=== PATIENT | female | born 2000 | race Hispanic/Latino ===

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

== ENCOUNTER → 2019-02-24 | Outpatient (CLI) | payer OTHER ==
--- NOTE | 2019-02-25 03:41 | REP ---
Clinical: Anatomical evaluation. Comparison: None . Findings: Examination demonstrates a single live intrauterine in variable presentation. motion is identified by technologist. Placenta is noted anterior and grade grade zero without evidence for placenta previa or abruption. Amniotic fluid volume is normal. Cervix measures 3.5 cm in length and appears closed. No evidence for nuchal cord. Gestational age by LMP 19 weeks 3 day with MICHELLE 07/18/2019 . Gestational age by current measurements 19 weeks 1 day with MICHELLE 07/20/2019 . FHR equals 146 beats per minute. BPD 4.3 cm 19 weeks 0 days HC 16.3 cm 19 weeks 0-day AC 15.0 cm 20 weeks 2 days FL 2.7 cm 18 weeks 2-day HL 2.8 cm 19 weeks 0 days HC/AC ratio 1.08 Estimated weight 286 grams ( 44th percentile). Anatomical assessment demonstrates normal structures including cranium, cavum, cerebellum/posterior fossa, facial features, lungs, four-chamber heart/ventricular outflow tracts, diaphragm, stomach, cord insertion/three-vessel cord, kidneys/bladder, spine, and extremities. Multiple small right choroid plexus cysts noted. Impression: Single live intrauterine in variable presentation demonstrating appropriate interval growth. 2. Choroid plexus cysts identified. 3. Remainder of the anatomical assessment is complete and normal. Electronically Signed by Joey Vu MD 02/25/2019 03:33 A
== END ==
LOC: M RAD 17:31
PROVIDERS: ATTEND Obstetrics & Gynecology
DX: Z34.82 Encounter for supervision of other normal pregnancy, second trimester (principal); Z3A.19 19 weeks gestation of pregnancy

== ENCOUNTER → 2019-04-25 | Outpatient (CLI) | payer OTHER ==
[2019-04-25 11:21] LABS: HEMATOCRIT 36.1 % (36.0-47.0); MEAN CORPUSCULAR HEMOGLOBIN 28.8 pg (27.0-33.0); MEAN CORPUSCULAR HGB CONC 33.2 g/dl (32.0-36.5); MEAN CORPUSCULAR VOLUME 86.6 fl (80.0-96.0); PLATELET COUNT, AUTOMATED 253 10^3/uL (150-450); RED BLOOD COUNT 4.17 10^6/uL (4.00-5.40); WHITE BLOOD COUNT 9.9 10^3/uL (4.0-10.0)
== END ==
LOC: M LAB 09:15
PROVIDERS: ATTEND Obstetrics & Gynecology
DX: Z36.89 Encounter for other specified antenatal screening (principal); O34.211 Maternal care for low transverse scar from previous cesarean delivery; Z3A.00 Weeks of gestation of pregnancy not specified

== ENCOUNTER → 2019-06-18 | Outpatient (REF) | payer OTHER ==
[~2019-06-18] MED LIST: COLA100C5 PO; GNP650TA8 PO; IBUP80TA PO; PERCOCET PO; PRENTAB55 PO
== END ==
LOC: M LAB REF 17:27
PROVIDERS: ATTEND Advanced Practice Midwife
DX: Z34.83 Encounter for supervision of other normal pregnancy, third trimester (principal)

== ENCOUNTER → 2019-06-20 | Outpatient (CLI) | payer OTHER ==
[~2019-06-20] MED LIST changes: -COLA100C5 PO; -IBUP80TA PO; -PERCOCET PO
== END ==
LOC: M WUC 09:27
PROVIDERS: ATTEND Advanced Practice Midwife
DX: Z34.83 Encounter for supervision of other normal pregnancy, third trimester (principal); Z36.89 Encounter for other specified antenatal screening

== ENCOUNTER 2019-07-12 05:13 | Inpatient (IN) | payer OTHER ==
[~2019-07-12] VITALS: Ht 154.9 cm; Wt 61.8 kg
[2019-07-12 05:32] VITALS: BP 130/79
[2019-07-12] MEDS ORDERED: LR 1,000 ML IV SCH (05:54)
[2019-07-12] MEDS ORDERED: LACTATED RINGER'S 1000 ML IV STA (05:54)
[2019-07-12] MEDS ORDERED: ceFAZolin SOD 2 GM in IV 1 EA IV ONE (06:00)
[2019-07-12] MEDS ORDERED: BICITRA 30ML SOLN UDC PO ONE (06:00)
[2019-07-12] MEDS ORDERED: AZITHROMYCIN INJ 500 MG, VIAL MATE ADAPTER 1 EACH in D5W 250 ML IV ONE (06:00)
--- NOTE | 2019-07-12 06:07 | HPEPDOC ---
Obstetrical History & Physical General Date of Admission Jul 12, 2019 at 05:53 History of Present Illness Chief Complaint: Contractions, term Information Provided By: Patient Age: 18 : 2 Term: 1 Pre-term: 0 Abortions: 0 Livin Care Care: Good Care Dating Final EDC by: LMP EGA at Admission: 39 (+1) Antepartum Course Height (inches): 61 Pre- weight (lbs.): 125 Admission Weight (lbs.): 132 Past Medical History Past Obstetrical History : Past Obstetrical History: Primgravida (2016) Type of Delivery: Ceserean section ( heart indications) Sex of Infant: Female (6#3) Complications: Yes (nonreassuring status) [employer] History: No pertinent history Past Medical History Surgical History: section Family History Significant Family History: Diabetes, Hypertension Social History Marital Status: Single Family situation: Spouse/partner home Psychosocial History: No pertinent psych hx * Smoker: non-smoker Alcohol: Denies Drugs: denies Abuse Violence Screening Have you been hit/kicked/slapp: No Imunizations Tdap status: current Influenza Status: declined Medications Scheduled [id number]/Iron Fum/Folic/Docusate ( 19 Tablet) 1 Each Tablet, 1 TAB PO DAILY Scheduled PRN Acetaminophen (8 Hour) 650 Mg Tablet.er, 650 MG PO PRN PRN for HEADACHE Physical Examination Physical Examination GENERAL: Alert and oriented times three. Uncomfortable. BREAST: . ABDOMEN: Gravid and non-tender to touch. FETUS: Is vertex (VTX) by sterile vaginal examination (SVE), fetus is vertex (VTX) by Tima. SPEC exam, moderate creamy white discharge, pH 4.5 HEART RATE: Regular rate and rhythm. LUNGS: Clear to auscultation (CTA). EXTREMITIES: No edema. No clonus. Deep tendon reflexes (DTRs) + 2. Pertinent Laboratoy Data Blood Type: O+ RBC Antibody Screen: Negative HIV: Negative Hepatitis B: Negative Hepatitis C: Negative Rapid Plasma Reagin: Nonreactive Rubella: Immune Chlamydia/Gonorrhea: Negative Group B Streptococcus: Negative Glucose Tolerance Test: 127 Anatomy Ultrasound Ultrasound Date: February 24, 2019 Placenta Location: Anterior Normal Anatomy: Yes (choroid plexus cysts) Placenta Previa: No Estimated Weight (grams): 286 Other Ultrasounds 12/16/18 dating MICHELLE 07/18/19 Steroid Therapy Steroid Therapy: No Vaginal Examination Dilation: 7 cm Effacement: 90% Station: 0 Cervical Consistency: Soft Cervical Position: Middle Presentation: Cephalic presentation Assessment Heart Rate (FHR): 130 Variability: Moderate Accelerations: Positive Decelerations: None Tocometer Contractions: Yes Frequency: regular, every 1-3 min. Strength: palpated as strong Assessment/Plan Assessment Karen is a 18-year-old (G)2 para (P)1-0-0-1 at 39+1 weeks by 9-week ultrasound. Presents to Labor and Delivery (L&D) with complaints of UC since 033 and possible ROM. Neg pool, neg nitrazine, found to be 7 cm dilated. Pt is palestinian speaking, mother in law is currently present for translation. History of previous with plans for repeat 07/14/19. Plan Admit and orient. [employer] and consent. Diet: NPO. Group B Streptococcus (GBS) negative. Labs and intravenous (IV) per unit protocol. Lactated Ringers (LR): Bolus 1000 mL, then at 125 mL/hr. Dr Medina, anesthesia notified C-S as requested. Cookie Cuadra CNM Jul 12, 2019 06:07
[2019-07-12] MEDS ORDERED: OXYTOCIN INJ 10 UNITS/ML VIAL (J2590) As Ordered ONE ×2 (06:17→07:50)
[2019-07-12] MEDS ORDERED: ONDANSETRON 4MG/2ML VIAL (J2405) As Ordered ONE (06:17)
[2019-07-12] MEDS ORDERED: MORPHINE PRES-FREE INJ 10 MG/10 ML VIAL (J2274) As Ordered ONE (06:17)
[2019-07-12] MEDS ORDERED: KETOROLAC 60 MG/2 ML VIAL (J1885) As Ordered ONE (06:17)
[2019-07-12 06:19] LABS: HEMATOCRIT 35.9 % (36.0-47.0); HEMOGLOBIN 11.7 g/dl (12.0-15.5); MEAN CORPUSCULAR HEMOGLOBIN 26.3 pg (27.0-33.0); MEAN CORPUSCULAR HGB CONC 32.6 g/dl (32.0-36.5); MEAN CORPUSCULAR VOLUME 80.7 fl (80.0-96.0); PLATELET COUNT, AUTOMATED 195 10^3/uL (150-450); RED BLOOD COUNT 4.45 10^6/uL (4.00-5.40); WHITE BLOOD COUNT 10.4 10^3/uL (4.0-10.0)
[2019-07-12] MEDS ORDERED: METOCLOPRAMIDE INJ 10MG/2ML VIAL (J2765) IV PRN (06:41)
[2019-07-12] MEDS ORDERED: NALBUPHINE HCL 10 MG/ML AMP (J2300) IV PRN ×2 (06:41→08:45)
[2019-07-12] MEDS ORDERED: NALOXONE INJ 0.4 MG/1 ML VIAL (J2310) IV PRN ×2 (06:41)
[2019-07-12] MEDS ORDERED: diphenhydrAMINE INJ 50MG/ML VIAL (J1200) IV PRN (06:41)
[2019-07-12] MEDS ORDERED: ONDANSETRON 4MG/2ML VIAL (J2405) IV PRN ×3 (06:41→08:45)
[2019-07-12] MEDS ORDERED: ePHEDrine SULFATE 25 MG/5 ML(5MG/ML) SYRINGE As Ordered ONE (06:48)
[2019-07-12] MEDS ORDERED: PHENYLephrine HCL 500 MCG/5 ML (100MCG/ML) SYRINGE (J2370) As Ordered ONE (06:57)
[2019-07-12] MEDS ORDERED: METOCLOPRAMIDE INJ 10MG/2ML VIAL (J2765) As Ordered ONE (07:11)
[2019-07-12] MEDS ORDERED: dexameTHASONE 4 MG/ML 1ML VIAL (J1100) As Ordered ONE (07:12)
[2019-07-12] MEDS: OXYTOCIN DRIP 30 UNITS in IV 1 EA IV SCH ×2 (08:28→08:40)
[2019-07-12] MEDS ORDERED: ACETAMINOPHEN 500 MG TAB PO PRN (08:30)
[2019-07-12] MEDS ORDERED: RHOGAM 300 MCG (1500 IU) INJ (J2790) IM SCH (08:30)
[2019-07-12] MEDS ORDERED: PROMETHAZINE 25 MG TAB PO PRN (08:30)
[2019-07-12] MEDS ORDERED: MEASLES,MUMPS,RUBELLA VACCINE INJ (MMR-II) (90707) SC SCH (08:30)
[2019-07-12] MEDS ORDERED: PERCOCET 5MG/325MG TAB PO PRN ×3 (08:30→08:45)
[2019-07-12] MEDS ORDERED: fentaNYL 100 MCG/2 ML INJECTION (J3010) IV PRN (08:45)
[2019-07-12] MEDS ORDERED: MEPERIDINE INJ 25 MG/ML VIAL (J2175) IV PRN (08:45)
[2019-07-12] MEDS ORDERED: HYDROMORPHONE HCL 0.5 MG/ 0.5 ML SYRINGE (J1170 PER 1) IV PRN (08:45)
[2019-07-12 09:59] VITALS: BP 109/64
[2019-07-12 10:29] VITALS: BP 113/58
[2019-07-12] MEDS: DOCUSATE SODIUM 100 MG CAP PO SCH ×2 (10:55→20:09)
[2019-07-12] MEDS: PRENATAL VITAMINS CHEWABLE TABLET PO SCH (10:55)
[2019-07-12 11:28] VITALS: BP 120/58
[2019-07-12] MEDS: LR 1,000 ML IV SCH ×2 (11:32→16:28)
[2019-07-12 12:26] VITALS: BP 113/63
[2019-07-12] MEDS: KETOROLAC 30 MG/ML VIAL (J1885) IV SCH ×2 (13:48→20:09)
[2019-07-12 17:30] VITALS: BP 103/53
[2019-07-13] MEDS: LR 1,000 ML IV SCH ×2 (00:28→10:45)
[2019-07-13 02:30] VITALS: BP 103/59
[2019-07-13] MEDS: KETOROLAC 30 MG/ML VIAL (J1885) IV SCH (02:31)
[2019-07-13 06:00] VITALS: BP 105/56
[2019-07-13 08:54] LABS: HEMATOCRIT 24.9 % (36.0-47.0); MEAN CORPUSCULAR HEMOGLOBIN 26.8 pg (27.0-33.0); MEAN CORPUSCULAR HGB CONC 32.1 g/dl (32.0-36.5); MEAN CORPUSCULAR VOLUME 83.6 fl (80.0-96.0); PLATELET COUNT, AUTOMATED 166 10^3/uL (150-450); RED BLOOD COUNT 2.98 10^6/uL (4.00-5.40); WHITE BLOOD COUNT 13.2 10^3/uL (4.0-10.0)
[2019-07-13] MEDS: PRENATAL VITAMINS CHEWABLE TABLET PO SCH (09:35)
[2019-07-13] MEDS: IBUPROFEN 800 MG TAB PO SCH ×2 (09:35→17:56)
[2019-07-13] MEDS: DOCUSATE SODIUM 100 MG CAP PO SCH ×2 (09:36→21:00)
[2019-07-13 09:51] VITALS: BP 103/63
[2019-07-13 14:10] VITALS: BP 115/64
[2019-07-13] MEDS ORDERED: INFLUENZA QUADRIVALENT PF VACCINE 0.5ML SYRINGE (90686) IM PRN (14:45)
[2019-07-13 17:43] VITALS: BP 107/71
[2019-07-13 22:00] VITALS: BP 115/68
[2019-07-14 02:00] VITALS: BP 114/54
[2019-07-14] MEDS: IBUPROFEN 800 MG TAB PO SCH ×2 (02:07→10:07)
[2019-07-14 06:00] VITALS: BP 108/56
[2019-07-14] MEDS ORDERED: PERCOCET PO (06:46)
[2019-07-14] MEDS ORDERED: IBUP80TA PO (06:46)
[2019-07-14] MEDS ORDERED: COLA100C5 PO (06:46)
[2019-07-14] MEDS: DOCUSATE SODIUM 100 MG CAP PO SCH (10:07)
[2019-07-14] MEDS: PRENATAL VITAMINS CHEWABLE TABLET PO SCH (10:07)
== END 2019-07-14 12:45 | disposition home or self-care (01) | DRG 540 ==
LOC: M LDO 05:13 → M LDI 05:53 → M OBS 09:44
PROVIDERS: ADMIT Advanced Practice Midwife; ATTEND Advanced Practice Midwife
PROC: 0UB70ZZ Excision of Bilateral Fallopian Tubes, Open Approach (ICD-10-PCS; 2019-07-12)
PROC: 10D00Z1 Extraction of Products of Conception, Low, Open Approach (ICD-10-PCS; principal; 2019-07-12 06:34)
DX: O34.211 Maternal care for low transverse scar from previous cesarean delivery (principal); Z30.2 Encounter for sterilization; Z37.0 Single live birth; Z3A.39 39 weeks gestation of pregnancy